=== PATIENT | male | born 1950 | race Caucasian/White ===

== ENCOUNTER 2021-05-02 08:50 | Day surgery (SDC) | payer MEDICARE ==
[~2021-05-02] VITALS: Ht 160 cm; Wt 88.6 kg
[~2021-05-02 08:50] MED LIST: APIX5TAB PO; ATOR10TA84 PO; CARV3 PO; CHOL-35 PO; FINA-27 PO; GABA-1181 PO; GLIM4 PO; HYDR25TA2 PO; IBUP200C5 PO; INSU10VI3 SQ; LOSA-382 PO; METF-1211 PO; MULT-663 PO; OMEP20 PO; SODIUM CHLORIDE 0.9% 1,000 ML IV ONE; SODIUM CHLORIDE 0.9% 1,000 ML ONE; TAMS-13 PO
[2021-05-02] MEDS ORDERED: DiphenhydrAMINE HCL 50 MG CAPSULE ONE (09:42)
[2021-05-02] MEDS ORDERED: ASPIRIN 81 MG CHEWABLE TABLET ONE (09:42)
[2021-05-02] MEDS ORDERED: DIAZEPAM 5 MG TABLET ONE (09:42)
[2021-05-02 09:51] LABS: GLUCOMETER DEV NAME(LOC) SDS.; GLUCOSE,POINT OF CARE 218 MG/DL (70-110)
[2021-05-02 10:40] VITALS: BP 162/73
[2021-05-02] MEDS ORDERED: FentaNYL CITRATE PF 100 MCG/2 ML VIAL ONE (10:59)
[2021-05-02] MEDS ORDERED: MIDAZOLAM HCL 2 MG/2 ML VIAL ONE (10:59)
[2021-05-02] MEDS ORDERED: MIDAZOLAM HCL 2 MG/2 ML VIAL IVP ONE (11:00)
[2021-05-02] MEDS ORDERED: HEPARIN SODIUM 1000 UNITS/NS 1,000 ML IARTER ONE (11:00)
[2021-05-02] MEDS ORDERED: IOHEXOL 300 MG/ML 150 ML VIAL IARTER ONE (11:00)
[2021-05-02] MEDS ORDERED: LIDOCAINE 1% 30 ML/SOD BICARB 8.4% 4 ML SQ ONE (11:00)
[2021-05-02] MEDS ORDERED: HEPARIN SODIUM 2,000 UNITS in HEPARIN SODIUM 1000 UNITS/NS 1,000 ML IARTER ONE (11:00)
[2021-05-02] MEDS ORDERED: TICAGRELOR 90 MG TABLET ONE (11:07)
[2021-05-02] MEDS ORDERED: MULT-1387 PO (11:10)
[2021-05-02] MEDS ORDERED: AMLO10TA55 PO (11:10)
[2021-05-02] MEDS ORDERED: ASPI-1444 PO (11:10)
[2021-05-02] MEDS ORDERED: FERR-72 PO (11:10)
[2021-05-02] MEDS ORDERED: GLIP5TAB11 PO (11:10)
[2021-05-02] MEDS ORDERED: CARV25 PO (11:10)
[2021-05-02] MEDS ORDERED: ATOR20TA65 PO (11:10)
[2021-05-02] MEDS ORDERED: HEPARIN SODIUM,PORCINE 5,000 UNITS/ML VIAL IVP ONE (11:15)
[2021-05-02] MEDS ORDERED: TICAGRELOR 90 MG TABLET PO ONE ×2 (11:15→16:00)
[2021-05-02] MEDS ORDERED: FentaNYL CITRATE PF 100 MCG/2 ML VIAL IVP ONE ×2 (11:15)
[2021-05-02 11:57] VITALS: BP 135/63
[2021-05-02] MEDS ORDERED: ASPIRIN 81 MG CHEWABLE TABLET PO ONE (12:00)
[2021-05-02] MEDS ORDERED: DiphenhydrAMINE HCL 50 MG CAPSULE PO ONE (12:00)
[2021-05-02] MEDS ORDERED: DIAZEPAM 5 MG TABLET PO ONE (12:00)
[2021-05-02] MEDS ORDERED: LIDOCAINE/PF 1% 30 ML VIAL ONE (12:19)
[2021-05-02] MEDS ORDERED: SODIUM BICARBONATE 50 MEQ/50 ML VIAL ONE (12:19)
[2021-05-02] MEDS ORDERED: IOHEXOL 300 MG/ML 100 ML VIAL ONE (12:19)
[2021-05-02] MEDS ORDERED: IOHEXOL 300 MG/ML 50 ML VIAL ONE (12:19)
[2021-05-02] MEDS ORDERED: IOHEXOL 300 MG/ML 150 ML VIAL ONE (12:19)
[2021-05-02] MEDS ORDERED: HEPARIN SODIUM 1000 UNITS/NS 1,000 ML ONE (12:19)
== END 2021-05-02 16:15 | disposition home or self-care (01) ==
LOC: CATHLAB 08:50
PROVIDERS: ATTEND Internal Medicine Interventional Cardiology
DX: R94.39 Abnormal result of other cardiovascular function study (principal); I25.10 Atherosclerotic heart disease of native coronary artery without angina pectoris; I10 Essential (primary) hypertension; Z79.82 Long term (current) use of aspirin; Z98.890 Other specified postprocedural states; Z79.899 Other long term (current) drug therapy
CPT/HCPCS: 82962; 93005; 93458; 99152; 99153; C1760; C1874; C1887; C9600; J1644; J2250; J3010; J3490 ×2; J7030; Q9967 ×3; 92920; 92928